=== PATIENT | male | born 1980 | race Caucasian/White ===

== ENCOUNTER 2018-08-29 23:31 | Emergency (ER) | payer MEDICARE, MEDICAID ==
[~2018-08-29] VITALS: Ht 182.9 cm; Wt 81.6 kg
[2018-08-30 00:33] LABS: CLARITY,URINE CLEAR; COLOR,URINE YELLOW; PH,URINE 5.5 (5-9)
[2018-08-30 00:34] LABS: BACTERIA,URINE NEGATIVE /HPF; BILIRUBIN,URINE NEGATIVE (NEGATIVE); GLUCOSE, URINE (UA) NEGATIVE (NEGATIVE); KETONES,URINE NEGATIVE (NEGATIVE); LEUKOCYTE ESTERASE ,URINE NEGATIVE (NEGATIVE); NITRITE,URINE NEGATIVE (NEGATIVE); PROTEIN,URINE NEGATIVE (NEGATIVE); UROBILINOGEN,URINE 0.2 MG/DL (NORMAL); WBC,URINE RARE /HPF
[2018-08-30 00:35] LABS: AMPHETAMINE SCREEN, URINE NEGATIVE (NEGATIVE); BARBITURATE SCREEN URINE NEGATIVE (NEGATIVE); BENZODIAZEPINES SCREEN URINE NEGATIVE (NEGATIVE); CANNABINOID SCREEN, URINE NEGATIVE (NEGATIVE); COCAINE SCREEN URINE NEGATIVE (NEGATIVE); METHADONE STAT NEGATIVE (NEGATIVE); METHAMPHETAMINE SCREEN URINE S NEGATIVE (NEGATIVE); OPIATE SCREEN URINE NEGATIVE (NEGATIVE); OXYCODONE STAT NEGATIVE (NEGATIVE); PROPOXYPHENE STAT NEGATIVE (NEGATIVE); TRICYCLIC ANTIDEPRESSANTS SCRE NEGATIVE (NEGATIVE)
[2018-08-30 00:36] LABS: HEMATOCRIT 40 % (40-54); HEMOGLOBIN 13.6 G/DL (13.3-17.7); MEAN CORPUSCULAR HEMOGLOBIN 30 PG (25-34); MEAN CORPUSCULAR HGB CONC 34 G/DL (32-36); MEAN CORPUSCULAR VOLUME 88 FL (80-99); MEAN PLATELET VOLUME 9.8 FL (7.4-10.4); PLATELET COUNT 217 10^3/uL (130-400); RED CELL DISTRIBUTION WIDTH 12.2 % (10.0-14.5)
[2018-08-30 00:37] LABS: BASOPHILS % (AUTO) 0 % (0-10); EOSINOPHILS % (AUTO) 1 % (0-10); LYMPHOCYTES # (AUTO) 1.7 X 10^3 (1.0-4.0); LYMPHOCYTES % (AUTO) 28 % (12-44); MONOCYTES # (AUTO) 0.4 X 10^3 (0.0-1.0); MONOCYTES % (AUTO) 6 % (0-12); NEUTROPHILS # (AUTO) 3.9 X 10^3 (1.8-7.8); NEUTROPHILS % (AUTO) 65 % (42-75)
[2018-08-30 00:38] LABS: ALKALINE PHOSPHATASE 48 U/L (40-136); BILIRUBIN,TOTAL 0.2 MG/DL (0.1-1.0); BUN/CREATININE RATIO 14; CALCIUM 8.8 MG/DL (8.5-10.1); CARBON DIOXIDE 23 MMOL/L (21-32); CHLORIDE 110 MMOL/L (98-107); CREATININE SERUM 0.79 MG/DL (0.60-1.30); GFR ESTIMATED > 60; GLUCOSE 106 MG/DL (70-105); POTASSIUM 4.5 MMOL/L (3.6-5.0); SODIUM 145 MMOL/L (135-145)
[2018-08-30 00:39] LABS: ACETAMINOPHEN < 10 UG/ML (10-30); ALANINE AMINOTRANSFERASE 63 U/L (0-55); ALBUMIN 4.5 GM/DL (3.2-4.5); SALICYLATE < 0.3 MG/DL (5.0-20.0); TOTAL PROTEIN 6.8 GM/DL (6.4-8.2)
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
--- NOTE | 2018-08-30 02:05 | NUR ---
MOTHER OF THE PATIENT STATED THE PATIENT HAD JUST BEEN DISCHARGED FROM [facility] YESTERDAY AFTER SPENDING 6 DAYS AN INPATIENT. PT. HAS BEEN HEARING VOICES AND TOLD HIS MOTHER HE COULDN'T TAKE IT ANYMORE, HE INFORMED THIS RN THAT HE WAS NOT SUICIDAL BUT HE IS HEARING VOICES.
--- NOTE | 2018-08-30 04:16 | NUR ---
PT. UP TO THE BATHROOM AT THIS TIME. PT. VERY COOPERATIVE AND QUIET.
--- NOTE | 2018-08-30 05:18 | NUR ---
THE SALINE LOCK WAS STARTED BY EMS PRIOR TO ER ADMIT.
--- NOTE | 2018-08-30 05:19 | NUR ---
LAB DRAW AT THIS TIME.
--- NOTE | 2018-08-30 06:26 | NUR ---
Pts mother called and reported that the patient can seem normal but has periods of jumping up and down, yelling and talking to people that are not there.
--- NOTE | 2018-08-30 07:30 | NUR ---
Spoke with Jerson at [facility] to request update on room number. Jerson stated as soon as a room was available he would call for us.
--- NOTE | 2018-08-30 09:01 | NUR ---
Patient is awake and alert, stating he wants to go home and not be admitted to [facility]. Updated Dr Corea who told this RN to call patients mother.
--- NOTE | 2018-08-30 09:02 | NUR ---
Patients mother stated she would come to hospital and talk to patient about being admitted to the hospital and if necessary she would take him back home.
--- NOTE | 2018-08-30 09:20 | NUR ---
Spoke with Nash at [facility] about screening patient. Nash stated he would be leaving [place] and would be here in about an hour.
[2018-08-30] MEDS ORDERED: ONDANSETRON 4 MG/2 ML (SDV) Z0FRAN ONE (09:27)
[2018-08-30] MEDS ORDERED: ONDANSETRON 4 MG (ZOFRAN) ORAL DISSOLVE TAB PO STA (09:29)
[2018-08-30] MEDS ORDERED: ONDANSETRON 4 MG/2 ML (SDV) Z0FRAN IVP ONE (12:00)
[2018-08-30 13:15] VITALS: BP 136/87
== END 2018-08-30 13:17 | disposition home or self-care (01) ==
LOC: EDUNIT# 23:31 → ER FS 23:34 → EDBD 23:34 → ER FS 08-30 13:17
DX: R44.0 Auditory hallucinations (principal); R45.851 Suicidal ideations; R74.0 Nonspecific elevation of levels of transaminase and lactic acid dehydrogenase [LDH]; F10.10 Alcohol abuse, uncomplicated; F20.0 Paranoid schizophrenia
CPT/HCPCS: 36415; 80053; 80306; 80320; 80329; 81000; 85025; 93005